=== PATIENT | male | born 1965 | race American Indian/Alaskan Native ===

== ENCOUNTER 2018-05-18 11:07 | Observation (INO) | payer BC ==
[2018-05-18] MEDS ORDERED: ASPIRIN PO ONE (11:22)
[2018-05-18 12:07] LABS: Basophils % (Auto) 0.8 % (0.0-1.8); Eosinophils # (Auto) 0.4 K/mm3 (0.0-0.4); Eosinophils % (Auto) 8.9 % (0.0-4.3); Hematocrit 40.1 % (35.5-45.6); Hemoglobin 13.5 gm/dl (11.8-15.2); Lymphocytes # (Auto) 1.1 K/mm3 (1.2-5.4); Lymphocytes % (Auto) 25.6 % (13.4-35.0); Mean Corpuscular HGB Conc 34 % (32-34); Mean Corpuscular Hemoglobin 30 pg (28-32); Mean Corpuscular Volume 88 fl (84-94); Monocytes # (Auto) 0.4 K/mm3 (0.0-0.8); Monocytes % (Auto) 8.3 % (0.0-7.3); Platelet Count 218 K/mm3 (140-440); Red Blood Count 4.54 M/mm3 (3.65-5.03); Red Cell Distribution Width 14.2 % (13.2-15.2)
[2018-05-18 12:19] LABS: BUN/Creatinine Ratio 10; Blood Urea Nitrogen 11 mg/dL (9-20); Calcium 9.4 mg/dL (8.4-10.2); Hemolysis Index 13
--- NOTE | 2018-05-18 12:58 | Emergency Department Report ---
Blank Doc - Documentation Documentation: He is a 53-year-old -[place]iss male who is presenting with 2 days of chest discomfort. Chest pain is intermittent and feels like a soreness in the midsternal and right chest. Patient has some intermittent shortness of breath associated. Patient denies any diaphoresis or any exertional component. Patient does have significant cardiac risk factors such as strong family history as well as hypertension and diabetes. Patient states he does have some active chest pain as we're discussing the patient's history. On focused physical exam patient's lungs were clear to auscultation heart tones. Normal. Patient's EKG is negative for STEMI. Patient will be moved to the main ED to be placed on a monitor and continue cardiac workup.
[2018-05-18] MEDS ORDERED: ZOFRAN IV ONE (13:08)
[2018-05-18] MEDS ORDERED: NITRO-BID 2% TP ONE (13:08)
[2018-05-18] MEDS ORDERED: MORPHINE IV ONE (13:09)
--- NOTE | 2018-05-18 13:19 | Emergency Department Report ---
HPI - General Chief Complaint: Chest Pain Time Seen by Provider: 05/18/18 12:47 - HPI HPI: Room 8 The patient is a 53-year-old male presenting with chief complaint of chest pain. He states she's had intermittent substernal chest pain is sharp in nature since last night. Patient admits to occasional diaphoresis with this pain but denies shortness of breath or nausea/vomiting. The patient currently gets his pain a score of 4/10. The patient states he has a strong family history of coronary artery disease including a mother who at age 37 and a twin sister who from coronary artery disease. The patient states has been several years since he has had a stress test or cardiac catheterization but he cannot recall the exact date. Location: Chest Duration: Intermittent since last night Quality: Sharp Severity: 4/10 Modifying factors: [see above] Context: [see above] Mode of transportation: [not driving] ED Past Medical Hx - Past Medical History Previous Medical History?: Yes Hx Hypertension: Yes Hx Diabetes: Yes Additional medical history: High cholesterol - Surgical History Past Surgical History?: Yes Additional Surgical History: heart cath - Family History Family history: CAD/OK - Social History Smoking Status: Former Smoker (none since 1992) Substance Use Type: None (denies illicit drug use), Alcohol (occasional) ED Review of Systems ROS: Stated complaint: CHEST PAIN Other details as noted in HPI Constitutional: diaphoresis Eyes: denies: eye pain ENT: denies: throat pain Respiratory: denies: shortness of breath Cardiovascular: chest pain Endocrine: no symptoms reported Gastrointestinal: denies: nausea, vomiting Genitourinary: denies: dysuria Musculoskeletal: denies: back pain Neurological: denies: headache Physical Exam - Physical Exam Vital Signs: Vital Signs 05/18/18 11:19 Temperature 98.1 F Pulse Rate 94 H Respiratory 18 Rate Blood Pressure 154/86 O2 Sat by Pulse 99 Oximetry Physical Exam: GENERAL: The patient is well-developed well-nourished male lying on stretcher not appearing to be in acute distress. [] HEENT: Normocephalic. Atraumatic. Extraocular motions are intact. Patient has moist mucous membranes. NECK: Supple. Trachea midline CHEST/LUNGS: Clear to auscultation. There is no respiratory distress noted. HEART/CARDIOVASCULAR: Regular. There is no tachycardia. There is no gallop rub or murmur. ABDOMEN: Abdomen is soft, nontender. Patient has normal bowel sounds. There is no abdominal distention. SKIN: There is no rash. There is no edema. There is no diaphoresis. NEURO: The patient is awake, alert, and oriented. The patient is cooperative. The patient has normal speech MUSCULOSKELETAL: There is no evidence of acute injury. ED Course Vital Signs 05/18/18 11:19 Temperature 98.1 F Pulse Rate 94 H Respiratory 18 Rate Blood Pressure 154/86 O2 Sat by Pulse 99 Oximetry ED Medical Decision Making - Lab Data Result diagrams: 05/18/18 11:55 05/18/18 11:55 Laboratory Tests 05/18/18 05/18/18 11:55 11:55 WBC 4.3 L RBC 4.54 Hgb 13.5 Hct 40.1 MCV 88 MCH 30 MCHC 34 RDW 14.2 Plt Count 218 Lymph % (Auto) 25.6 [place] % (Auto) 8.3 H Eos % (Auto) 8.9 H Baso % (Auto) 0.8 Lymph # 1.1 L [place] # 0.4 Eos # 0.4 Baso # 0.0 Seg Neutrophils % 56.4 Seg Neutrophils # 2.4 Sodium 136 L Potassium 5.2 H Chloride 100.8 Carbon Dioxide 25 Anion Gap 15 BUN 11 Creatinine 1.1 Estimated GFR > 60 BUN/Creatinine Ratio 10 Glucose 258 H Calcium 9.4 Troponin T < 0.010 - EKG Data -: EKG Interpreted by Me EKG shows normal: sinus rhythm Rate: normal - EKG Data When compared to previous EKG there are: previous EKG unavailable Interpretation: nonspecific ST-T wave lauro (T-wave inversion in lead 3) - Radiology Data Radiology results: image reviewed (chest x-ray) interpreted by me: Chest x-ray-no focal infiltrates, no pneumothorax - Differential Diagnosis ACS, GERD, pericarditis Critical care attestation.: If time is entered above; I have spent that time in minutes in the direct care of this critically ill patient, excluding procedure time. ED Disposition Clinical Impression: Chest pain Disposition: OP ADMIT IP TO THIS HOSP Is pt being admited?: Yes Does the pt Need Aspirin: Yes Condition: Fair Instructions: Chest Pain (ED) Referrals: PRIMARY CARE, [Primary Care Provider] - 3-5 Days Time of Disposition: 13:30 (hospitalist paged (Dr. Cedeno))
--- NOTE | 2018-05-18 14:46 | XRay Report ---
FINAL REPORT EXAM: XR CHEST 1V AP HISTORY: chest pain TECHNIQUE: Frontal portable examination of the chest PRIORS: None FINDINGS: Limited examination due to prominent soft tissue attenuation. There is no pulmonary consolidation, pleural effusion, or pneumothorax. The regional skeleton is without acute pathology. The cardiac silhouette size is slightly enlarged without evidence of vascular congestion or pulmonary edema. IMPRESSION: No acute pulmonary disease in the visualized chest Slight cardiomegaly
[2018-05-18] MEDS ORDERED: TORADOL ONE (15:14)
--- NOTE | 2018-05-18 21:03 | History and Physical Report ---
History of Present Illness Date of examination: 05/18/18 Date of admission: 05/18/18 13:32 Chief complaint: Chief complaint: Left-sided chest pain since last night-10 PM History of present illness: MARJORIE: 52-year-old male with history of hypertension diabetes and hyperlipidemia presents to the emergency room with chest pain since last night. Chest pain started around 10 PM last night and that is about 4 on a scale of 1-10. Radiating to her left side of the neck. Sometimes a sharp and sometimes it is dull. Associated with diaphoresis. No palpitations no shortness of breath. No fever or chills. Patient has a strong history of coronary artery disease and his mother at the age of 37 secondary to coronary artery disease. No recent travel. Patient had a heart cath in 2016 and was negative. Past Medical History Previous Medical History?: Yes Hx Hypertension: Yes Hx Diabetes: Yes Additional medical history: High cholesterol Surgical History Past Surgical History?: Yes Additional Surgical History: heart cath Family History Family history: CAD/[place] Social History Smoking Status: Former Smoker (none since 1992) Substance Use Type: None (denies illicit drug use), Alcohol (occasional) Review of Systems ROS: Stated complaint: CHEST PAIN Other details as noted in HPI Constitutional: diaphoresis Eyes: denies: eye pain ENT: denies: throat pain Respiratory: denies: shortness of breath Cardiovascular: chest pain Endocrine: no symptoms reported Gastrointestinal: denies: nausea, vomiting Genitourinary: denies: dysuria Musculoskeletal: denies: back pain Neurological: denies: headache Medications and Allergies Allergies Allergy/AdvReac Type Severity Reaction Status Date / Time Penicillins Allergy Rash Verified 05/18/18 11:19 Exam - Constitutional Vitals: Temp Pulse Resp BP Pulse Ox 98.4 F 84 18 109/76 95 05/18/18 20:35 05/18/18 20:35 05/18/18 20:35 05/18/18 20:35 05/18/18 20:35 General appearance: Present: no acute distress, well-nourished - EENT Eyes: Present: PERRL ENT: hearing intact, clear oral mucosa - Neck Neck: Present: supple, normal ROM - Respiratory Respiratory effort: normal Respiratory: bilateral: CTA - Cardiovascular Heart rate: 90 Rhythm: regular Heart Sounds: Present: S1 & S2. Absent: rub, click - Extremities Extremities: no ischemia, pulses intact, pulses symmetrical, No edema Peripheral Pulses: within normal limits - Abdominal General gastrointestinal: Present: soft, non-tender, non-distended, normal bowel sounds Male genitourinary: Present: normal - Rectal Rectal Exam: deferred - Integumentary Integumentary: Present: clear, warm, dry - Musculoskeletal Musculoskeletal: gait normal, strength equal bilaterally - Psychiatric Psychiatric: appropriate mood/affect, intact judgment & insight - Neurologic Neurologic: CNII-XII intact, moves all extremities - Allied Health Allied health notes reviewed: nursing, case management Results - Labs CBC & Chem 7: 05/18/18 11:55 05/18/18 11:55 Labs: Laboratory Last Values WBC 4.3 K/mm3 (4.5-11.0) L 05/18/18 11:55 RBC 4.54 M/mm3 (3.65-5.03) 05/18/18 11:55 Hgb 13.5 gm/dl (11.8-15.2) 05/18/18 11:55 Hct 40.1 % (35.5-45.6) 05/18/18 11:55 MCV 88 fl (84-94) 05/18/18 11:55 MCH 30 pg (28-32) 05/18/18 11:55 MCHC 34 % (32-34) 05/18/18 11:55 RDW 14.2 % (13.2-15.2) 05/18/18 11:55 Plt Count 218 K/mm3 (140-440) 05/18/18 11:55 Lymph % (Auto) 25.6 % (13.4-35.0) 05/18/18 11:55 [place] % (Auto) 8.3 % (0.0-7.3) H 05/18/18 11:55 Eos % (Auto) 8.9 % (0.0-4.3) H 05/18/18 11:55 Baso % (Auto) 0.8 % (0.0-1.8) 05/18/18 11:55 Lymph # 1.1 K/mm3 (1.2-5.4) L 05/18/18 11:55 [place] # 0.4 K/mm3 (0.0-0.8) 05/18/18 11:55 Eos # 0.4 K/mm3 (0.0-0.4) 05/18/18 11:55 Baso # 0.0 K/mm3 (0.0-0.1) 05/18/18 11:55 Seg Neutrophils % 56.4 % (40.0-70.0) 05/18/18 11:55 Seg Neutrophils # 2.4 K/mm3 (1.8-7.7) 05/18/18 11:55 Sodium 136 mmol/L (137-145) L 05/18/18 11:55 Potassium 5.2 mmol/L (3.6-5.0) H 05/18/18 11:55 Chloride 100.8 mmol/L (98-107) 05/18/18 11:55 Carbon Dioxide 25 mmol/L (22-30) 05/18/18 11:55 Anion Gap 15 mmol/L 05/18/18 11:55 BUN 11 mg/dL (9-20) 05/18/18 11:55 Creatinine 1.1 mg/dL (0.8-1.5) 05/18/18 11:55 Estimated GFR > 60 ml/min 05/18/18 11:55 BUN/Creatinine Ratio 10 % 05/18/18 11:55 Glucose 258 mg/dL (75-100) H 05/18/18 11:55 Calcium 9.4 mg/dL (8.4-10.2) 05/18/18 11:55 Troponin T < 0.010 ng/mL (0.00-0.029) 05/18/18 15:29 - Imaging and Cardiology EKG: report reviewed (sinus rhythm heart rate of 90/m probable left atrial enlargement interpreted by me) Imaging and Cardiology: Chest x-ray IMPRESSION: No acute pulmonary disease in the visualized chest Slight cardiomegaly Assessment and Plan Advance Directives: Yes (full code) VTE prophylaxis?: Chemical Plan of care discussed with patient/family: Yes - Patient Problems (1) Chest pain Current Visit: Yes Status: Acute Qualifiers: Chest pain type: unspecified Qualified Code(s): R07.9 - Chest pain, unspecified Plan to address problem: Chest pain rule out [place] Chest pain protocol Serial troponins Lexiscan the morning Patient had cardiac cath 2 years ago and was normal Don't expect the Lexiscan to be positive. (2) Hyperkalemia Current Visit: Yes Status: Acute Plan to address problem: Patient initiated on calcium gluconate IV Hyperkalemia is mild Should correct (3) Hypertension Current Visit: Yes Status: Chronic Qualifiers: Hypertension type: essential hypertension Qualified Code(s): I10 - Essential (primary) hypertension Plan to address problem: Continue antihypertensives (4) Type 2 diabetes mellitus Current Visit: Yes Status: Chronic Qualifiers: Diabetes mellitus long-term insulin use: without long term care administrator use Plan to address problem: Continue metformin and coverage Check hemoglobin A1c (5) Hyperlipidemia Current Visit: Yes Status: Chronic Qualifiers: Hyperlipidemia type: mixed hyperlipidemia Qualified Code(s): E78.2 - Mixed hyperlipidemia Plan to address problem: Continue statins (6) DVT prophylaxis Current Visit: Yes Status: Acute Plan to address problem: Lovenox 40 mg subcutaneous daily
[2018-05-18] MEDS ORDERED: CALCIUM GLUCONATE 2,000 MG in NACL 0.9% 100 ML IV ONE (21:05)
[2018-05-18] MEDS ORDERED: SODIUM CHLORIDE FLUSH SYRINGE 10 ML IV PRN (21:17)
[2018-05-18] MEDS ORDERED: ZOFRAN IV PRN (21:17)
[2018-05-18] MEDS ORDERED: TYLENOL PO PRN (21:17)
[2018-05-18] MEDS ORDERED: MORPHINE IV PRN (21:17)
[2018-05-18] MEDS ORDERED: PERCOCET 5/325 PO PRN (21:17)
[2018-05-18] MEDS ORDERED: COZAAR PO SCH (22:00)
[2018-05-18] MEDS ORDERED: SODIUM CHLORIDE FLUSH SYRINGE 10 ML IV SCH (22:00)
[2018-05-18] MEDS ORDERED: HumaLOG SUB-Q SCH (22:00)
[2018-05-18 22:37] LABS: Chol/HDL Ratio 4.73 %
[2018-05-18] MEDS ORDERED: AMBIEN PO PRN (23:02)
[2018-05-19 04:43] LABS: Alanine Aminotransferase 29 units/L (7-56); Albumin 3.6 g/dL (3.9-5); BUN/Creatinine Ratio 13; Blood Urea Nitrogen 16 mg/dL (9-20); Calcium 9.3 mg/dL (8.4-10.2); Hemolysis Index 6
[2018-05-19] MEDS ORDERED: GLUCOPHAGE PO SCH (08:00)
[2018-05-19] MEDS ORDERED: LEXISCAN IV ONE ×2 (08:07→08:14)
[2018-05-19 11:06] VITALS: BP 135/86
--- NOTE | 2018-05-19 12:50 | Discharge Summary ---
Providers - Providers Date of Admission: 05/18/18 13:32 Date of discharge: 05/19/18 Attending physician: ANGE TODD Primary care physician: KARMEN ROBBINS MD Hospitalization Condition: Stable Hospital course: Pastor Taveras is a 53 yo man with a history of hypertension, Dm type 2, dyslipidemia, chronic back pains with left leg neuropathy who present with Chest pains. pCXR negative. Cardiac Troponins negative. Exercise Stress test converted to Lexican chemical stress test due to back pains, left leg neuropathy preventing the completion of exercise stress test. He is chest pains free -Chest pains, atypical, most likely costochondritis if stress test is negative -DM type 2 with peripheral neuropathy: ssi, ada diet -Hypertension: continue bp meds, low salt diet -Dyslipidemia: continue statin -Morbid obesity, bmi 41.8: lifestyle modification with weight reduction encouraged -Chronic back pains with neuropathy: followed by Dr. Robbins, schedule to see specialist. Disposition: DC- TO HOME OR SELFCARE Time spent for discharge: 32 minutes Core Measure Documentation - Palliative Care Palliative Care/ Comfort Measures: Not Applicable - Core Measures Any of the following diagnoses?: none - VTE Discharge Requirements Deep Vein Thrombosis/Pulmonary Embolism Present on Admission: No Has pt received <5 days of overlap therapy or INR<2.0: No Anticoagulant overlap therapy prescribed at discharge: No Contraindication No Overlap Therapy order at DC: Not Indicated Exam - Physical Exam Narrative exam: GEN: WDWN, NAD, Awake, Alert, Orientated x 3 HEENT: NCAT, EOMI, PERRL, OP Clear NECK: supple, no adenopathy, no thyromegaly, no JVD CVS/HEART: RRR, normal S1S2, pulses present bilaterally CHEST/LUNGS: CTA B, Symmetrical chest expansion, good air entry bilaterally GI/Abdomen: soft, NTND, good bowel sounds, no guarding or rebound /Bladder: no suprapubic tenderness, no CVA or paraspinal tenderness EXT/Skin: no c/c/e, no obvious rash MSK: FROM x 4 Neuro: CN 2-12 grossly intact, no new focal deficits Psych: calm - Constitutional Vitals: Temp Pulse Resp BP Pulse Ox 98.4 F 108 H 20 135/86 99 05/19/18 05:40 05/19/18 09:29 05/19/18 05:40 05/19/18 09:29 05/19/18 10:12 Plan Activity: other (no strenous activity unless cleared by PCP) Diet: low fat, low salt, diabetic Special Instructions: record daily BP diary, record blood sugar diary Additional Instructions: Follow up with Dr. Jimmy Warren with bp and you need outpatient ECHO. Also, you will need Cardiac clearance for any procedure. Follow up with: PRIMARY MD ANSON [Referring] - 3-5 Days JIMMY WARREN MD [Staff Physician] - 7 Days
--- NOTE | 2018-05-27 10:46 | Treadmill Report ---
THALLIUM STRESS TEST LEFT VENTRICLE: Left ventricular chamber size is within normal spread. Perfusion study demonstrates normal apical thinning, otherwise homogeneous uptake of tracer in all segments. No significant perfusion defects identified. Gated analysis is suboptimal. CONCLUSION: No demonstrable ischemia on thallium perfusion images. Recommend clinical correlation and echocardiographic reassessment of left ventricular chamber size and systolic function. JOB# [id number] CA/NTS
== END 2018-05-19 15:01 | disposition home or self-care (01) ==
LOC: ED 11:07 → INTOOBSV 13:32 → 4A 13:32
PROVIDERS: ADMIT Internal Medicine; ATTEND Internal Medicine
DX: R07.89 Other chest pain (principal); I10 Essential (primary) hypertension; E11.42 Type 2 diabetes mellitus with diabetic polyneuropathy; E78.5 Hyperlipidemia, unspecified; E87.5 Hyperkalemia; Z82.49 Family history of ischemic heart disease and other diseases of the circulatory system; Z72.89 Other problems related to lifestyle; Z88.0 Allergy status to penicillin; Z83.3 Family history of diabetes mellitus
CPT/HCPCS: 36415; 71045; 78452; 80048; 80053; 80061; 82962; 83036; 84484; 85025; 93005; 93010; 93017; 96374; 96375; 99285; A9270; A9502; G0378; J0610; J1885; J2270; J2405; J2785; J1815